=== PATIENT | female | born 1960 | race Caucasian/White ===

== ENCOUNTER 2017-12-18 13:02 | Emergency (ER) | payer BC | END 2017-12-18 14:29 | disposition home or self-care (01) | LOC: FTE 13:02 | DX: L02.811 Cutaneous abscess of head [any part, except face] (principal) | CPT/HCPCS: 10060; 99284-25 ==

== ENCOUNTER 2018-03-22 04:51 | Inpatient (IN) | payer BC ==
[2018-03-22] MEDS ORDERED: ONDANSETRON 4 MG INJ IV (10:00)
[2018-03-22] MEDS ORDERED: BISACODYL 10 MG SUPP PR (10:00)
[2018-03-22] MEDS ORDERED: MAGNESIUM HYDROXIDE 30ML CUP PO (10:00)
[2018-03-22] MEDS ORDERED: NACL 0.9% 3 ML SYG IV (10:00)
[2018-03-22] MEDS ORDERED: morphine 2 MG INJ IV (10:00)
[2018-03-22] MEDS ORDERED: ACETAMINOPHEN 325 MG TAB PO (10:00)
[2018-03-22] MEDS ORDERED: HYDROCODONE/APAP (5/325) TAB PO ×2 (10:00)
[2018-03-22] MEDS ORDERED: DOCUSATE SODIUM 100 MG CAP PO (10:00)
[2018-03-22] MEDS ORDERED: ACETAMINOPHEN 650 MG SUPP PR (10:00)
[2018-03-22 13:23] LABS: ADD MAN DIFF? NO
[2018-03-22 13:24] LABS: WHITE BLOOD COUNT 5.3 10^3/ul (4.8-10.8)
[2018-03-22 13:24] LABS: BASOPHILS % 0.4 % (0.0-2.0); EOSINOPHILS % 0.6 % (0.0-7.0); HEMATOCRIT 43.8 % (37.0-47.0); HEMOGLOBIN 14.3 g/dl (12.0-16.0); LYMPHOCYTES # 1.7 10^3/ul (0.8-2.9); LYMPHOCYTES % 31.9 % (15.0-51.0); MEAN CORPUSCULAR HEMOGLOBIN 27.7 pg (29.0-33.0); MEAN CORPUSCULAR HGB CONC 32.6 g/dl (32.0-37.0); MEAN CORPUSCULAR VOLUME 84.7 fl (82.0-101.0); MEAN PLATELET VOLUME 9.7 fl (7.4-10.4); MONOCYTE # 0.3 10^3/ul (0.3-0.9); MONOCYTES % 6.3 % (0.0-11.0); NEUTROPHIL # 3.2 10^3/ul (1.6-7.5); NEUTROPHILS % 60.6 % (39.0-77.0); PLATELET COUNT 207 10^3/UL (140-415); RED BLOOD COUNT 5.17 10^6/ul (4.20-5.40); RED CELL DISTRIBUTION WIDTH 13.1 % (11.5-14.5)
[2018-03-22 13:43] LABS: ALANINE AMINOTRANSFERASE 29 IU/L (13-69); ALBUMIN 4.4 g/dl (3.3-4.9); ALBUMIN/GLOBULIN RATIO 1.46; ALKALINE PHOSPHATASE 43 IU/L (42-121); ANION GAP 14 (8-16); ASPARTATE AMINO TRANSFERASE 21 IU/L (15-46); BILIRUBIN,INDIRECT 0.3 mg/dl (0-1.1); BILIRUBIN,TOTAL 0.3 mg/dl (0.2-1.3); BLOOD UREA NITROGEN 12 mg/dl (7-20); CALCIUM 9.4 mg/dl (8.4-10.2); CARBON DIOXIDE 28 mmol/L (21-31); CHLORIDE 105 mmol/L (97-110); GLUCOSE 90 mg/dl (70-220); POTASSIUM 4.4 mmol/L (3.5-5.1); SODIUM 143 mmol/L (135-144); TOTAL PROTEIN 7.4 g/dl (6.1-8.1)
[2018-03-22 13:52] LABS: INR 1.01; PROTIME 13.4 Sec (11.9-14.9)
[2018-03-22] MEDS: ATORVASTATIN 80 MG TAB PO (20:50)
[2018-03-23] MEDS: PANTOPRAZOLE 40 MG INJ IV (05:10)
[2018-03-23 06:55] LABS: ADD MAN DIFF? NO
[2018-03-23 06:58] LABS: BASOPHILS % 0.4 % (0.0-2.0); EOSINOPHILS # 0.1 10^3/ul (0.0-0.5); EOSINOPHILS % 1.3 % (0.0-7.0); HEMOGLOBIN 13.9 g/dl (12.0-16.0); LYMPHOCYTES % 37.4 % (15.0-51.0); MEAN CORPUSCULAR HEMOGLOBIN 28.1 pg (29.0-33.0); MEAN CORPUSCULAR HGB CONC 33.1 g/dl (32.0-37.0); MEAN PLATELET VOLUME 9.7 fl (7.4-10.4); MONOCYTE # 0.5 10^3/ul (0.3-0.9); MONOCYTES % 9.6 % (0.0-11.0); NEUTROPHIL # 2.8 10^3/ul (1.6-7.5); NEUTROPHILS % 50.9 % (39.0-77.0); PLATELET COUNT 193 10^3/UL (140-415); RED BLOOD COUNT 4.94 10^6/ul (4.20-5.40); RED CELL DISTRIBUTION WIDTH 13.2 % (11.5-14.5)
[2018-03-23 06:58] LABS: WHITE BLOOD COUNT 5.4 10^3/ul (4.8-10.8)
[2018-03-23 07:13] LABS: HEMOGLOBIN A1C 5.6 % (0-5.9)
[2018-03-23 07:53] LABS: ALANINE AMINOTRANSFERASE 17 IU/L (13-69); ALBUMIN 4.1 g/dl (3.3-4.9); ALBUMIN/GLOBULIN RATIO 1.64; ALKALINE PHOSPHATASE 64 IU/L (42-121); ANION GAP 12 (8-16); ASPARTATE AMINO TRANSFERASE 29 IU/L (15-46); BILIRUBIN,INDIRECT 0.5 mg/dl (0-1.1); BILIRUBIN,TOTAL 0.5 mg/dl (0.2-1.3); BLOOD UREA NITROGEN 18 mg/dl (7-20); CALCIUM 9.5 mg/dl (8.4-10.2); CARBON DIOXIDE 28 mmol/L (21-31); CHLORIDE 107 mmol/L (97-110); CHOL/HDL RATIO 5.6 RATIO; CHOLESTEROL 242 mg/dl (100-200); CREATININE 0.59 mg/dl (0.44-1.00); GLUCOSE 92 mg/dl (70-220); HDL CHOLESTEROL 43 mg/dl (37-92); LDL CHOLESTEROL,CALCULATED 162 mg/dl; MAGNESIUM 1.9 mg/dl (1.7-2.5); PHOSPHORUS 4.8 mg/dl (2.5-4.9); POTASSIUM 4.5 mmol/L (3.5-5.1); SODIUM 142 mmol/L (135-144); TOTAL PROTEIN 6.6 g/dl (6.1-8.1); TRIGLYCERIDES 184 mg/dl (0-149)
[2018-03-23 08:03] LABS: FREE THYROXINE INDEX (Calc) 2.55 ug/ml (0.65-3.89); T3 UPTAKE 27.4 % (23.5-40.5); T4 (THYROXINE) 9.3 ug/dl (5.5-11.0)
[2018-03-23] MEDS: ENALAPRIL 5 MG TAB PO (08:08)
[2018-03-23] MEDS: ASPIRIN 81 MG TAB PO (08:08)
[2018-03-23] MEDS: LORAZEPAM 2 MG INJ IV (10:09)
[2018-03-23] MEDS ORDERED: LORAZEPAM 2 MG INJ IV (10:30)
== END 2018-03-23 16:55 | disposition home or self-care (01) | DRG 65 ==
LOC: TEL 04:51
DX: I63.9 Cerebral infarction, unspecified (principal); G45.9 Transient cerebral ischemic attack, unspecified; E78.1 Pure hyperglyceridemia; I10 Essential (primary) hypertension; R51 Headache
CPT/HCPCS: 70553; 80053; 80061; 83036; 83735; 84100; 84436; 84443; 84479; 85025; 85610; 87081; 92610; 93306; 97161; 97165